=== PATIENT | male | born 1985 | race Caucasian/White ===

== ENCOUNTER 2025-01-28 19:39 | Emergency (ER) | payer OTHER ==
[2025-01-28 19:50] VITALS: RESP 18; TEMP 97.6
--- NOTE | 2025-01-28 20:17 | ERPHSYRPT ---
- History of Present Illness Source: patient Exam Limitations: no limitations Patient Subjective Stated Complaint: pt states swelling and jaw pain Triage Nursing Assessment: pt ambulated into the er; pt is axo x4; c/o toothache; pt states 5/10 pain to rt side of face; swelling present to rt side of face; broken, missing teeth present; multiple caries present; mucus membranes pink and moist; no respiratory distress present; hypertensive Physician History: Patient has some edema in his jaw it is in his upper teeth that is where the origin is. It is right about his first molar on the right side maybe a little bit anterior to that. He does not have any fever chills he does have of edema. There is no signs or symptoms of cellulitis or anything like that. His airway is open and there is no trismus or Ludewig's angina. Allergies/Adverse Reactions: No Known Drug Allergies Allergy (Unverified 01/28/25 19:43) Hx Tetanus, Diphtheria Vaccination/Date Given: Yes Hx Influenza Vaccination/Date Given: No Hx Pneumococcal Vaccination/Date Given: No Travel Risk - International Travel Have you traveled outside of the country in past 3 weeks: No - Emerging Infectious Disease Are you exhibiting symptoms associated with any current EIDs: No - Review of Systems Constitutional: No Symptoms, Night Sweats Respiratory: No Symptoms All Other Systems: Reviewed and Negative - Past Medical History Pertinent Past Medical History: No - Past Surgical History Past Surgical History: No - Social History Smoking Status: Current every day smoker How long have you smoked: 27 year Exposure to second hand smoke: Yes Drug Use: marijuana - Social Determinants of Health Will the patient participate in the screening: Yes Do you worry about a steady place to live?: No Do you have any problems with any of the following?: No known problems In the past 12 months,have you had to go without utilities?: No Transportation Issues: No Has anyone in your support network made you feel unsafe?: No Have you or anyone in your house had to go w/o enough food: No - Nursing Vital Signs Nursing Vital Signs: Initial Vital Signs Temperature 97.6 F 01/28/25 19:43 Pulse Rate 78 01/28/25 19:43 Respiratory Rate 18 01/28/25 19:43 Blood Pressure 163/97 01/28/25 19:43 O2 Sat by Pulse Oximetry 98 01/28/25 19:43 Pain Scale Pain Intensity 5 - Physical Exam General Appearance: no apparent distress Eye Exam: bilateral eye: normal inspection, PERRL, EOMI Nasal Exam: normal inspection, No active bleeding, No discharge Throat Exam: normal, pharynx normal, dental tenderness, maxillary swelling, No excessive drooling, No tongue swollen, No tonsillar exudate, No tonsillar swelling, No trismus, No uvula swelling Neck Exam: normal inspection, non-tender, supple, full range of motion, No lymphadenopathy (R), No lymphadenopathy (L) Cardiovascular/Respiratory Exam: no respiratory distress SpO2: 98 - Progress Progress: unchanged Progress Note: Patient was stable throughout stay. Looks like he does has a dental abscess. I going to start him on clindamycin and [place]. He is discharged home in stable condition he is to follow-up with his dentist. He is also to use ice to the area 01/28/25 20:13 - Departure Departure Disposition: Home Clinical Impression: Abscess, periapical Condition: Stable Critical Care Time: No Referrals: GÓMEZ CARRASCO MD [Primary Care Provider, INTERNAL MEDICINE] - Follow up/PCP as directed Instructions: Tooth Abscess (DC)
[2025-01-28] MEDS ORDERED: CLEOCIN 150 MG CAPSULE ONE (20:20)
[2025-01-28] MEDS ORDERED: NORCO 5/325 MG ONE (20:20)
[2025-01-28] MEDS: NORCO 5/325 MG PO ONE (20:21)
[2025-01-28] MEDS: CLEOCIN 150 MG CAPSULE PO SCH (20:21)
[2025-01-28 20:33] VITALS: BP 151/79; PULSE 63; O2SAT 97
== END 2025-01-28 20:33 | disposition home or self-care (01) ==
LOC: ED 19:39
DX: K04.7 Periapical abscess without sinus (principal); Z79.891 Long term (current) use of opiate analgesic; Z79.899 Other long term (current) drug therapy; Z72.0 Tobacco use